=== PATIENT | male | born 1985 | race Asian ===

== ENCOUNTER 2021-01-08 06:02 | Emergency (ER) | payer OTHER, SELFPAY ==
[~2021-01-08] VITALS: Ht 167.6 cm; Wt 61.2 kg
[2021-01-08 06:30] VITALS: BP_SYST 124
--- NOTE | 2021-01-08 06:30 | NUR ---
Patient ambulatory to bed 8 for evaluation
--- NOTE | 2021-01-08 06:45 | NUR ---
ER Dr. Rowland at bedside examining patient.
[2021-01-08] MEDS ORDERED: XALEYE OP (06:59)
--- NOTE | 2021-01-08 07:15 | NUR ---
Patient ambulated to restroom.
--- NOTE | 2021-01-08 07:20 | NUR ---
Patient is awake, alert, and oriented x3. Patient is complaining of lower right quadrant abdominal pain for the past 36 hours. He denies nausea, vomiting, and diarrhea.
[2021-01-08 07:44] LABS: BASOPHILS % (AUTO) 0.3 % (0.0-2.0); EOSINOPHILS # (AUTO) 0.1 K/uL (0.0-0.4); EOSINOPHILS % (AUTO) 0.7 % (0.0-4.0); HEMATOCRIT 41.1 % (36-54); LYMPHOCYTES # (AUTO) 1.5 K/uL (1.0-5.5); LYMPHOCYTES % (AUTO) 11.5 % (20.5-51.5); MEAN CORPUSCULAR HEMOGLOBIN 30 pg (27-31); MEAN CORPUSCULAR HGB CONC 34 % (32-36); MEAN CORPUSCULAR VOLUME 87 fL (79.0-98.0); MONOCYTES # (AUTO) 1.3 K/uL (0.0-1.0); MONOCYTES % (AUTO) 10.4 % (1.7-9.3); NEUTROPHILS # (AUTO) 9.9 K/uL (1.8-7.7); NEUTROPHILS % (AUTO) 77.1 % (40.0-70.0); PLATELET COUNT (AUTO) 237 K/uL (130-430); RED BLOOD CELL COUNT(AUTO) 4.71 MIL/uL (4.2-6.2); RED CELL DISTRIBUTION WIDTH 12.8 % (9.0-15.0); WHITE BLOOD COUNT (AUTO) 12.9 K/uL (4.8-10.8)
[2021-01-08 07:54] LABS: CALCIUM 9.7 mg/dL (8.4-11.0); CREATININE 1.23 mg/dL (0.55-1.30); POTASSIUM 3.9 mmol/L (3.5-5.1)
[2021-01-08 08:05] LABS: ALBUMIN 3.7 g/dL (3.4-4.8); TOTAL BILIRUBIN 0.9 mg/dL (0.0-1.0)
[2021-01-08] MEDS: PIPERACILLIN/TAZO 3.375 GM in NS 50 ML IV ONE (08:32)
[2021-01-08 08:57] LABS: BILIRUBIN,URINE NEGATIVE (NEGATIVE); BLOOD, URINE NEGATIVE (NEGATIVE); CLARITY/URINE CLEAR (CLEAR); COLOR,URINE YELLOW (YELLOW); GLUCOSE,URINE NEGATIVE (NEGATIVE); KETONES,URINE NEGATIVE (NEGATIVE); LEUKOCYTE ESTERASE ,URINE NEGATIVE (NEGATIVE); NITRITE, URINE NEGATIVE (NEGATIVE); PROTEIN URINE NEGATIVE (NEGATIVE); UROBILINOGEN,URINE 0.2 (0.2-1.0)
[2021-01-08] MEDS ORDERED: AMOX-426 PO (09:07)
[2021-01-08] MEDS ORDERED: METR500T PO (09:07)
[2021-01-08] MEDS ORDERED: TRAM50TA PO (09:07)
--- NOTE | 2021-01-08 09:15 | NUR ---
Patient given written and verbal discharge instructions and verbalizes understanding. ER MD discussed with patient the results and treatment provided. Patient in stable condition. ID arm band removed. IV catheter removed intact and dressing applied, no active bleeding. Rx of augmentin,flagyl,tramadol given. Patient educated on pain management and to follow up with PMD. Pain Scale 0/10. Opportunity for questions provided and answered. Medication side effect fact sheet provided.
[2021-01-08 09:16] VITALS: BP_SYST 122
== END 2021-01-08 09:16 | disposition home or self-care (01) ==
LOC: SED 06:02
DX: K57.92 Diverticulitis of intestine, part unspecified, without perforation or abscess without bleeding (principal); Z79.899 Other long term (current) drug therapy; Z20.822 Contact with and (suspected) exposure to COVID-19
CPT/HCPCS: 36415; 76376; 80053; 81003; 83690; 85025; 87040-TC; 96365; 99284